=== PATIENT | male | born 1945 | race Caucasian/White ===

== ENCOUNTER 2019-01-16 15:00 | Inpatient (IN) | payer OTHER ==
[~2019-01-16] VITALS: Ht 175.3 cm; Wt 79.4 kg
[2019-01-16 15:15] VITALS: BP_SYST 167
[2019-01-16] MEDS ORDERED: ONDANSETRON HCL 4 MG/2 ML VIAL IVP ONE (15:30)
[2019-01-16] MEDS ORDERED: MORPHINE 4 MG/ML INJ. SYRINGE IVP ONE ×2 (15:30→18:00)
[2019-01-16 16:44] LABS: BASOPHILS % (AUTO) 0.2 % (0.0-2.0); HEMOGLOBIN 15.9 g/dL (14.0-18.0); LYMPHOCYTES # (AUTO) 1.1 K/uL (1.0-5.5); MEAN CORPUSCULAR HEMOGLOBIN 32 pg (27-31); MEAN CORPUSCULAR HGB CONC 34 % (32-36); MEAN CORPUSCULAR VOLUME 94 fL (79.0-98.0); MONOCYTES # (AUTO) 0.6 K/uL (0.0-1.0); MONOCYTES % (AUTO) 4.2 % (1.7-9.3); NEUTROPHILS # (AUTO) 11.7 K/uL (1.8-7.7); NEUTROPHILS % (AUTO) 87.6 % (40.0-70.0); PLATELET COUNT (AUTO) 284 K/uL (130-430); RED BLOOD CELL COUNT(AUTO) 5.02 MIL/uL (4.2-6.2); RED CELL DISTRIBUTION WIDTH 13.6 % (9.0-15.0); WHITE BLOOD COUNT (AUTO) 13.4 K/uL (4.8-10.8)
[2019-01-16 16:53] LABS: ANION GAP 13 (5-15); CALCIUM 9.5 mg/dL (8.4-11.0); CHLORIDE 103 mmol/L (98-107); CREATININE 0.97 mg/dL (0.55-1.30); GLUCOSE 193 mg/dL (70-99); POTASSIUM 3.9 mmol/L (3.5-5.1); SODIUM SERUM 140 mmol/L (136-145); UREA NITROGEN, BLOOD 19 mg/dL (8-21)
[2019-01-16 16:59] LABS: ALANINE AMINOTRANSFERASE 24 U/L (12-78); ALBUMIN 4.1 g/dL (3.4-4.8); ASPARTATE AMINOTRANSFERASE 13 U/L (10-37); LIPASE 73 U/L (73-393); TOTAL BILIRUBIN 0.4 mg/dL (0.0-1.0)
[2019-01-16] MEDS ORDERED: NACL 0.9% 1,000 ML IV ONE (17:00)
[2019-01-16 17:09] LABS: BILIRUBIN,URINE NEGATIVE (NEGATIVE); BLOOD, URINE 1+ (NEGATIVE); CLARITY/URINE CLEAR (CLEAR); COLOR,URINE YELLOW (YELLOW); GLUCOSE,URINE NEGATIVE (NEGATIVE); KETONES,URINE 3+ (NEGATIVE); LEUKOCYTE ESTERASE ,URINE NEGATIVE (NEGATIVE); NITRITE, URINE NEGATIVE (NEGATIVE); PH,URINE 5.5 (5.0-8.0); PROTEIN URINE 2+ (NEGATIVE); UROBILINOGEN,URINE 0.2 (0.2-1.0)
[2019-01-16 17:26] LABS: BACTERIA,URINE FEW /HPF (None Seen); WBC,URINE 0-3 /HPF (0-3)
[2019-01-16 17:27] LABS: MUCUS,URINE None Seen /LPF (None Seen)
[2019-01-16] MEDS ORDERED: CLOP75TA32 PO (19:13)
[2019-01-16] MEDS ORDERED: LIP10 PO (19:13)
[2019-01-16] MEDS ORDERED: GLU500 PO (19:13)
[2019-01-16 20:07] VITALS: BP_SYST 143
[2019-01-16 20:10] VITALS: BP_SYST 140
[2019-01-16] MEDS ORDERED: traZODone HCL 50 MG TABLET (DESYREL) PO PRN (21:45)
[2019-01-16] MEDS ORDERED: MORPHINE 2 MG/ML INJ. SYRINGE IVP PRN ×3 (21:45→22:45)
[2019-01-16] MEDS ORDERED: ACETAMINOPHEN 325 MG TABLET PO PRN (22:45)
[2019-01-16] MEDS ORDERED: HYDROcodone/ACETAMIN 10-325 MG TAB PO PRN (22:45)
[2019-01-16] MEDS ORDERED: LORazepam 2 MG/ML VIAL IVP PRN (22:45)
[2019-01-16] MEDS ORDERED: HYDROcodone/ACETAMIN 5-325 MG TAB (NORCO/ VICODIN) PO PRN (22:45)
[2019-01-16] MEDS ORDERED: ONDANSETRON HCL 4 MG/2 ML VIAL IVP PRN (22:45)
[2019-01-17] VITALS: BP_SYST 130
[2019-01-17] MEDS ORDERED: FLU VACC TS2019(65UP)/MF59C/PF 45 MCG/0.5 ML SYRINGE I.M. PRN (03:00)
[2019-01-17 03:38] VITALS: BP_SYST 119
[2019-01-17] MEDS ORDERED: NORMAL SALINE 5 ML DISP.SYRIN IVF SCH (06:00)
[2019-01-17 06:35] LABS: BASOPHILS % (AUTO) 0.2 % (0.0-2.0); EOSINOPHILS % (AUTO) 0.2 % (0.0-4.0); HEMATOCRIT 41.8 % (36-54); HEMOGLOBIN 14.3 g/dL (14.0-18.0); LYMPHOCYTES % (AUTO) 18.5 % (20.5-51.5); MEAN CORPUSCULAR HEMOGLOBIN 32 pg (27-31); MEAN CORPUSCULAR HGB CONC 34 % (32-36); MEAN CORPUSCULAR VOLUME 94 fL (79.0-98.0); MONOCYTES # (AUTO) 1.1 K/uL (0.0-1.0); MONOCYTES % (AUTO) 10.2 % (1.7-9.3); NEUTROPHILS # (AUTO) 7.7 K/uL (1.8-7.7); NEUTROPHILS % (AUTO) 70.9 % (40.0-70.0); PLATELET COUNT (AUTO) 255 K/uL (130-430); RED BLOOD CELL COUNT(AUTO) 4.44 MIL/uL (4.2-6.2); RED CELL DISTRIBUTION WIDTH 13.8 % (9.0-15.0); WHITE BLOOD COUNT (AUTO) 10.9 K/uL (4.8-10.8)
[2019-01-17 07:14] LABS: ANION GAP 10 (5-15); CALCIUM 8.3 mg/dL (8.4-11.0); CHLORIDE 104 mmol/L (98-107); CREATININE 0.99 mg/dL (0.55-1.30); GLUCOSE 159 mg/dL (70-99); POTASSIUM 3.9 mmol/L (3.5-5.1); SODIUM SERUM 140 mmol/L (136-145); UREA NITROGEN, BLOOD 18 mg/dL (8-21)
[2019-01-17 07:55] VITALS: BP_SYST 137
[2019-01-17] MEDS ORDERED: metFORMIN HCL 500 MG TABLET PO SCH (08:00)
[2019-01-17] MEDS ORDERED: CLOPIDOGREL BISULFATE 75 MG TABLET PO SCH (09:00)
[2019-01-17 11:00] VITALS: BP_SYST 125
[2019-01-17] MEDS ORDERED: LEVOFLOXACIN 500 MG/D5W 100 ML IV SCH (19:00)
[2019-01-17] MEDS ORDERED: ATORVASTATIN 10 MG TABLET PO SCH (21:00)
== END 2019-01-17 11:58 | disposition left against medical advice (07) | DRG 690 ==
LOC: SED 15:00 → SMU 19:18
PROVIDERS: ADMIT Preventive Medicine Preventive Medicine/Occupational Environmental Medicine; ATTEND Preventive Medicine Preventive Medicine/Occupational Environmental Medicine
DX: N10 Acute pyelonephritis (principal); N40.0 Benign prostatic hyperplasia without lower urinary tract symptoms; I10 Essential (primary) hypertension; E11.65 Type 2 diabetes mellitus with hyperglycemia; Z53.21 Procedure and treatment not carried out due to patient leaving prior to being seen by health care provider; Z79.01 Long term (current) use of anticoagulants; Z95.5 Presence of coronary angioplasty implant and graft; Z79.899 Other long term (current) drug therapy; Z95.1 Presence of aortocoronary bypass graft
CPT/HCPCS: 36415; 80048; 80053; 81000-TC; 82962; 83605; 83690-TC; 85025; 87040-TC; 87086; 96361; 96365; 96375; 99285; J1956; J2270; J2405; J7030